=== PATIENT | female | born 1965 | race Caucasian/White ===

== ENCOUNTER 2017-07-08 13:08 | Emergency (ER) | payer MEDICAID, OTHER ==
[~2017-07-08] VITALS: Ht 170.2 cm; Wt 65.3 kg
[2017-07-08 13:12] VITALS: Ht 170.2 cm; Wt 65.3 kg
[2017-07-08] MEDS ORDERED: ONDANSETRON (ODT) 4 MG TAB ODT STA (16:07)
--- NOTE | 2017-07-08 17:06 | ERD ---
ER Documentation Chief Complaint Chief Complaint nausea, with back pain upon movement for past few days HPI This is a 52-year-old female who presents the emergency department today complaining of neck pain and back pain for the past month. States she took Advil with no improvement in symptoms. She also feels nauseated. Denies any fevers or chills, dysuria. States that she does have a primary care doctor but did not call them. Denies a any headache dizziness blurred vision ROS All systems reviewed and are negative except as per history of present illness. Medications Home Meds Active Scripts Ondansetron Hcl* (Zofran*) 4 Mg Tablet, 4 MG PO Q6H for NAUSEA AND/OR VOMITING, #30 TAB Prov:CAROLYN HILLC 07/08/17 Naproxen* (Naprosyn*) 500 Mg Tablet, 500 MG PO BID Y for PAIN AND/OR INFLAMMATION, #30 TAB Prov:CAROLYN HILLC 07/08/17 Tramadol HCl (Tramadol HCl) 50 Mg Tablet, 50 MG PO Q4 Y for PAIN, #20 TAB Prov:CAROLYN HILL-C 07/08/17 Allergies Allergies: Coded Allergies: No Known Allergy (Unverified , 07/08/17) PMhx/Soc Medical and Surgical Hx: pt denies Medical Hx, pt denies Surgical Hx Hx Alcohol Use: No Hx Substance Use: No Hx Tobacco Use: No Smoking Status: Never smoker Physical Exam Vitals Vital Signs Date Time Temp Pulse Resp B/P Pulse Ox O2 Delivery O2 Flow Rate FiO2 07/08/17 18:30 97.7 67 18 153/82 100 Room Air 07/08/17 13:12 99.0 102 18 175/84 99 Physical Exam Const: NAD Head: Atraumatic Eyes: Normal Conjunctiva PERRLA. EOM intact. ENT: Normal External Ears, Nose and Mouth. Neck: Full range of motion..~ No meningismus. Resp: Clear to auscultation bilaterally Cardio: Regular rate and rhythm, no murmurs Abd: Soft, non tender, non distended. Normal bowel sounds Skin: No petechiae or rashes Back: Lumbar spine midline tenderness. Full active range of motion. Pulses 2 +. Distal neurovascularly intact. Negative straight leg raise. PA tenderness. Ext: No cyanosis, or edema Neur: Awake and alert. Cranial nerves II through XII intact. No gait ataxia. Psych: Normal Mood and Affect Results 24 hrs Laboratory Tests Test 07/08/17 17:40 Urine Color YELLOW Urine Clarity CLEAR Urine pH 5.0 Urine Specific [place] 1.020 Urine Ketones NEGATIVEmg/dL Urine Nitrite NEGATIVEmg/dL Urine Bilirubin NEGATIVEmg/dL Urine Urobilinogen NEGATIVEmg/dL Urine Leukocyte Esterase NEGATIVELeu/ul Urine Hemoglobin NEGATIVEmg/dL Urine Glucose NEGATIVEmg/dL Urine Total Protein NEGATIVEmg/dl Current Medications Medications (Trade) Dose Ordered Sig/Jaquelin Route PRN Reason Start Time Stop Time Status Last Admin Dose Admin Ondansetron HCl (Zofran Odt) 4 mg ONCE STAT ODT 07/08/17 16:07 07/08/17 16:10 DC 07/08/17 16:20 DIAGNOSTIC IMAGING REPORT Patient: MARIN BRICENO : 1965 Age: 52 Sex: F MR #: [id number] DOS: 07/08/17 0000 Ordering MD: CAROLYN HILL PA-C Location: [facility] Room/Bed: PROCEDURE: XR Cervical Spine. CLINICAL INDICATION: pain x 1 month TECHNIQUE: AP, lateral and odontoid views of the cervical spine were performed. The images were reviewed on a PACS workstation. COMPARISON: None. FINDINGS: There is straightening of the normal cervical lordosis. There is mild retrolisthesis at C5-C6, approximate 2 mm. There is moderate to severe disc space narrowing at C5-C6 and C6-C7, with mild appearing posterior osteophytes. There is mild to moderate facet hypertrophy through the lower cervical spine. Vertebral body heights are maintained. There is no acute fracture identified. The atlantoaxial articulation appears grossly unremarkable, with assessment partially limited by positioning.. There is no prevertebral soft tissue swelling.. IMPRESSION: 1. Straightening of the normal cervical lordosis. Mild retrolisthesis at C5-C6 , approximately 2 mm. 2. Mild posterior osteophytes at C5-C6 and C6-C7. Mild to moderate lower cervical spine facet hypertrophy. 3. No visualized acute fracture. RPTAT: DD .Kishan Hi MD, MD Date Time Electronically viewed and signed by .Kishan Hi MD, MD on 07/08/2017 18:18 .T/ CC: CAROLYN HILL PA-C DIAGNOSTIC IMAGING REPORT Patient: MARIN BRICENO : 1965 Age: 52 Sex: F MR #: [id number] DOS: 07/08/17 0000 Ordering MD: CAROLYN HILL PA-C Location: [facility] Room/Bed: PROCEDURE: XR Lumbar Spine. CLINICAL INDICATION: Lumbar spine pain for 1 month TECHNIQUE: AP, lateral and cone-down lateral view of the lumbar spine were obtained. COMPARISON: No prior studies are available for comparison. FINDINGS: There is normal vertebral mineralization and alignment. Mild anterior wedging at the T12-L4 levels, otherwise nonspecific. There is no evident acute fracture or subluxation is seen. The disc spaces are normal in appearance. Posterior facet degenerative changes seen at the L5-S1 level. The soft tissues appear normal. Left greater than right mild to moderate degenerative changes in the sacroiliac joints. IMPRESSION: 1. Degenerative changes in the lower lumbar spine and sacroiliac joints. 2. No evident acute fracture. RPTAT: [facility] Physician Kayce Date Time Electronically viewed and signed by Physician Kayce on 07/08/2017 18:19 RS/ CC: CAROLYN HILL PA-C Procedures/[facility] This is a 52 year-old female presents emergency department today complaining of neck pain and back pain for the past month. Patient has tried ukuv-jjo-zraobok medication with no improvement in symptoms. On physical exam patient has cervical and lumbar spine midline tenderness and therefore did obtain images especially given the duration of symptoms. Images of the cervical spine straightening of the normal cervical lordosis there is mild retrolisthesis at C5 and C6 approximately 2 mm. There are mild posterior osteophytes at C5 and 6 and C6-7. There is mild to moderate lower cervical spine facet hypertrophy. There is no visualized acute fracture or soft tissue swelling. Images of the lumbar spine show degenerative changes in the lumbar spine and SI joints. There is no evidence of acute fracture. Soft tissues are normal there is mild anterior wedging at the T12 and L4 levels otherwise nonspecific. UA is negative for infection Urine test is negative Symptoms at this time is consistent with neck pain and back pain likely secondary to degenerative disc disease and nausea. Patient did have elevated blood pressure at intake of 175/82. Blood pressure prior to discharge decreased to 153/82. Low suspicion for hypertensive emergency or hypertensive urgency. Patient has no focal neurologic deficits and no gait ataxia. She has a negative Romberg. She denies any headache, blurred vision. I do not feel the patient requires a head CT scan at this time. Low suspicion for acute hemorrhage, mass, abscess, meningitis Patient was given Zofran here in the emergency department as well as Toradol. patient will be given a prescription for tramadol, Naprosyn, Zofran for home. She was instructed to follow-up with her primary care physician about her elevated blood pressure. At this time the patient is stable for discharge and outpatient management. Patient should follow up with their PCP in the next 1-2 days. They may return to the emergency department sooner for any persistent or worsening of symptoms. Patient understood and agreed with the plan. Discussed the patient with Dr. Hung and he does not feel the patient requires further workup or imaging at this time. Departure Diagnosis: Primary Impression: Back pain Back pain location: back pain in unspecified location Chronicity: chronic Back pain laterality: midline Qualified Code: M54.9 - Chronic midline back pain, unspecified back location Additional Impression: Nausea Condition: CAROLYN Lyon PA-C Jul 08, 2017 17:06
[2017-07-08 17:52] LABS: ADD UMIC NO; UR ASCORBIC ACID NEGATIVE (NEGATIVE); UR BILIRUBIN (Dip) NEGATIVE (NEGATIVE); UR BLOOD (Dip) NEGATIVE (NEGATIVE); UR CLARITY CLEAR (CLEAR); UR COLOR YELLOW (YELLOW); UR GLUCOSE (Dip) NEGATIVE (NEGATIVE); UR KETONES (Dip) NEGATIVE (NEGATIVE); UR LEUKOCYTE ESTERASE (Dip) NEGATIVE Leu/ul (NEGATIVE); UR NITRITE (Dip) NEGATIVE (NEGATIVE); UR TOTAL PROTEIN (Dip) NEGATIVE (NEGATIVE); UR UROBILINOGEN (Dip) NEGATIVE (NEGATIVE)
--- NOTE | 2017-07-08 18:19 | RADRPT ---
PROCEDURE: XR Cervical Spine. CLINICAL INDICATION: pain x 1 month TECHNIQUE: AP, lateral and odontoid views of the cervical spine were performed. The images were re viewed on a PACS workstation. COMPARISON: None. FINDINGS: There is straightening of the normal cervical lordosis. There is mild retrolisthesis at C5-C6, appro ximate 2 mm. There is moderate to severe disc space narrowing at C5-C6 and C6-C7, with mild appearin g posterior osteophytes. There is mild to moderate facet hypertrophy through the lower cervical spin e. Vertebral body heights are maintained. There is no acute fracture identified. The atlantoaxial articulation appears grossly unremarkable, with assessment partially limited by positioning.. There is no prevertebral soft tissue swelling.. IMPRESSION: 1. Straightening of the normal cervical lordosis. Mild retrolisthesis at C5-C6, approximately 2 mm. 2. Mild posterior osteophytes at C5-C6 and C6-C7. Mild to moderate lower cervical spine facet hyper trophy. 3. No visualized acute fracture. RPTAT: DD .Kishan Hi MD, Date Time Electronically viewed and signed by .Kishan Hi MD, on 07/08/2017 18:18 .T/
--- NOTE | 2017-07-08 18:20 | RADRPT ---
PROCEDURE: XR Lumbar Spine. CLINICAL INDICATION: Lumbar spine pain for 1 month TECHNIQUE: AP, lateral and cone-down lateral view of the lumbar spine were obtained. COMPARISON: No prior studies are available for comparison. FINDINGS: There is normal vertebral mineralization and alignment. Mild anterior wedging at the T12-L4 levels, otherwise nonspecific. There is no evident acute fractur e or subluxation is seen. The disc spaces are normal in appearance. Posterior facet degenerative changes seen at the L5-S1 level. The soft tissues appear normal. Left greater than right mild to moderate degenerative changes in the sacroiliac joints. IMPRESSION: 1. Degenerative changes in the lower lumbar spine and sacroiliac joints. 2. No evident acute fracture. RPTAT: [facility]U Physician Kayce Date Time Electronically viewed and signed by Physician Kayce on 07/08/2017 18:19 RS/
[2017-07-08 18:30] VITALS: BP 153/82; PULSE 67; RESP 18; TEMP 97.7
[2017-07-08] MEDS ORDERED: ONDA4TAB8 PO (18:39)
[2017-07-08] MEDS ORDERED: TRAM50TA2 PO (18:39)
[2017-07-08] MEDS ORDERED: NAPR-260 PO (18:39)
== END 2017-07-08 18:50 | disposition home or self-care (01) ==
LOC: FTE 13:08
DX: M54.5 Low back pain (principal); R11.0 Nausea
CPT/HCPCS: 72040; 72100; 81003; Z7502; Z7610